=== PATIENT | male | born 1965 | race Native Hawaiian/Other Pacific Islander ===

== ENCOUNTER 2016-10-26 09:56 | Outpatient (CLI) | payer OTHER ==
[~2016-10-26] VITALS: Ht 185.4 cm; Wt 143.2 kg
[~2016-10-26 09:56] MED LIST: CELEBREX 1100 MG/CAP PO; MITIGARE0.6 MG PO; ZYLOPRIM 300MG300 MG PO
[2016-10-26 10:14] VITALS: BP 122/95; PULSE 73
[2016-10-26 11:05] VITALS: BP 124/58; PULSE 99
[2016-10-26 11:15] VITALS: BP 123/84; PULSE 76
[2016-10-26 11:45] VITALS: BP 123/84; PULSE 80
[2016-10-26 12:03] LABS: CEREBROSPINAL TUBE #3
[2016-10-26 12:04] LABS: CSF APPEARANCE HAZY; CSF COLOR PINK
[2016-10-31 10:10] LABS: CSF,IGG 3.2 mg/dL (<=8.1)
[2016-10-31 10:55] LABS: ALBUMIN CSF 16.9 mg/dL (<=27.0); CSF IGG/ALBUMIN 0.19 (<=0.21)
[2016-10-31 12:44] LABS: CSF SYNTHESIS RATE 1.31 mg/24 h (<=12); CSF-IGG INDEX 0.58 (<=0.85); IGG/ALBUMIN SERUM 0.33 (<=0.40)
== END 2016-10-26 12:45 | disposition home or self-care (01) ==
LOC: COL.RAD 09:56
PROVIDERS: Psychiatry & Neurology Neurology
DX: R51 Headache (principal)